=== PATIENT | female | born 1995 | race Hispanic/Latino ===

== ENCOUNTER 2017-10-07 18:42 | Emergency (ER) | payer MEDICAID ==
[2017-10-07 19:18] LABS: APPEARANCE,URINE Cloudy (CLEAR); BILIRUBIN,URINE Negative (NEGATIVE); COLOR,URINE Yellow (YELLOW); GLUCOSE, URINE (UA) Negative (NEGATIVE); KETONES,URINE Negative (NEGATIVE); LEUKOCYTE ESTERASE ,URINE Trace (NEGATIVE); NITRATE,URINE Negative (NEGATIVE); OCCULT BLOOD,URINE Negative (NEGATIVE); PH,URINE 7.5 (5.0-8.0); PROTEIN,URINE Negative (NEGATIVE); UROBILINOGEN,URINE 0.2 mg/dL (0.2-1.0)
[2017-10-07 19:20] LABS: HCG,QUAL RESULT NEGATIVE (NEGATIVE)
[2017-10-07 19:37] LABS: AMORPHOUS SEDIMENT,UR Many /LPF (None Seen); BACTERIA,URINE Few /HPF (None Seen); MUCUS,URINE Few LPF (None Seen); RBC,URINE 0-1 /HPF (0-1)
[2017-10-07] MEDS ORDERED: KETOROLAC TROMETHAMINE 30MG/ML ONE (20:36)
== END 2017-10-07 20:44 | disposition home or self-care (01) ==
LOC: EDH 18:42
DX: N83.291 Other ovarian cyst, right side (principal)
CPT/HCPCS: 76856; 81001; 81025; 96372; 99285; J1885

== ENCOUNTER 2019-02-23 01:38 | Observation (INO) | payer MEDICAID ==
[~2019-02-23] VITALS: Ht 152.4 cm; Wt 69.4 kg
[2019-02-23 02:18] LABS: BILIRUBIN,URINE Negative (NEGATIVE); COLOR,URINE Yellow (YELLOW); GLUCOSE, URINE (UA) Negative (NEGATIVE); KETONES,URINE Negative (NEGATIVE); LEUKOCYTE ESTERASE ,URINE Large (NEGATIVE); NITRATE,URINE Negative (NEGATIVE); OCCULT BLOOD,URINE Small (NEGATIVE); PROTEIN,URINE POS 2+ mg/dL (NEGATIVE)
[2019-02-23 02:21] LABS: APPEARANCE,URINE SLIGHTLY CLOUDY (CLEAR)
[2019-02-23 02:27] LABS: AMPHET/METH SCREEN,URINE NEGATIVE (NEGATIVE); BARBITURATE SCREEN, URINE NEGATIVE (NEGATIVE); BENZODIAZEPINES SCREEN,URINE NEGATIVE (NEGATIVE); CANNABINOID SCREEN,URINE NEGATIVE (NEGATIVE); COCAINE SCREEN,URINE NEGATIVE (NEGATIVE); OPIATE SCREEN,URINE NEGATIVE (NEGATIVE); PHENCYCLIDINE SCREEN,URINE NEGATIVE (NEGATIVE)
[2019-02-23 02:41] LABS: RBC,URINE 0-1 /HPF (0-1)
[2019-02-23 02:42] LABS: BACTERIA,URINE Few /HPF (None Seen); WBC,URINE 51-100 /HPF (0-1)
[2019-02-23] MEDS ORDERED: PREN-196 PO (02:43)
[2019-02-23] MEDS ORDERED: ACETAMINOPHEN EXTRA STRENGTH 500 MG TABLET PO ONE (03:15)
[2019-02-23] MEDS ORDERED: CEFTRIAXONE SODIUM 1 GM IM ONE (03:15)
[2019-02-23] MEDS ORDERED: CEFTRIAXONE SODIUM 1 GM ONE (03:20)
[2019-02-23] MEDS ORDERED: ACETAMINOPHEN EXTRA STRENGTH 500 MG TABLET ONE (03:21)
== END 2019-02-23 03:48 | disposition home or self-care (01) ==
LOC: EDH 01:38 → LDH 01:39
PROVIDERS: ADMIT Specialist; ATTEND Specialist
DX: O26.892 Other specified pregnancy related conditions, second trimester (principal); M54.9 Dorsalgia, unspecified; R10.30 Lower abdominal pain, unspecified; Z3A.26 26 weeks gestation of pregnancy; Z79.899 Other long term (current) drug therapy
CPT/HCPCS: 80305; 81001; 96372; 99284; G0378 ×2; J0696

== ENCOUNTER 2019-05-03 00:23 | Observation (INO) | payer OTHER, MEDICAID ==
[~2019-05-03] VITALS: Ht 160 cm; Wt 81.2 kg
[~2019-05-03 00:23] MED LIST: PREN-196 PO
[2019-05-03] MEDS ORDERED: PREN-196 PO (00:35)
[2019-05-03 00:54] LABS: APPEARANCE,URINE Clear (CLEAR); BILIRUBIN,URINE Negative (NEGATIVE); COLOR,URINE Yellow (YELLOW); GLUCOSE, URINE (UA) Negative (NEGATIVE); KETONES,URINE Negative (NEGATIVE); LEUKOCYTE ESTERASE ,URINE Trace (NEGATIVE); NITRATE,URINE Negative (NEGATIVE); OCCULT BLOOD,URINE Negative (NEGATIVE); PROTEIN,URINE Negative (NEGATIVE)
[2019-05-03 01:18] LABS: BACTERIA,URINE Rare /HPF (None Seen); RBC,URINE 0-1 /HPF (0-1); SQUAMOUS EPITHELIAL CELL,UR 0-2 /HPF (0-2)
[2019-05-03] MEDS: LACTATED RINGERS 1000ML 1,000 ML IV PRN ×2 (01:24→03:03)
[2019-05-03 01:50] LABS: AMPHET/METH SCREEN,URINE NEGATIVE (NEGATIVE); BARBITURATE SCREEN, URINE NEGATIVE (NEGATIVE); BENZODIAZEPINES SCREEN,URINE NEGATIVE (NEGATIVE); CANNABINOID SCREEN,URINE NEGATIVE (NEGATIVE); COCAINE SCREEN,URINE NEGATIVE (NEGATIVE); OPIATE SCREEN,URINE NEGATIVE (NEGATIVE); PHENCYCLIDINE SCREEN,URINE NEGATIVE (NEGATIVE)
[2019-05-03] MEDS ORDERED: TERBUTALINE SULFATE VIAL 1MG/ML SQ ONE (02:09)
[2019-05-03] MEDS ORDERED: TERBUTALINE SULFATE VIAL 1MG/ML SQ SCH (02:15)
[2019-05-03] MEDS ORDERED: LACTATED RINGERS 1000ML 1,000 ML IV SCH (02:15)
[2019-05-03] MEDS ORDERED: AMPICILLIN 2GM+NS 100ML 100 ML IV SCH (02:30)
[2019-05-03] MEDS ORDERED: AMPICILLIN 2GM+NS 100ML 100 ML IV ONE (02:57)
[2019-05-03 03:01] LABS: MEAN CORPUSCULAR HEMOGLOBIN 29.5 pg (27.0-33.0); MEAN CORPUSCULAR HGB CONC 33.2 g/dL (32.0-36.0); MEAN CORPUSCULAR VOLUME 88.6 fL (79-99); PLATELET COUNT (AUTO) 214 K/uL (130-400); RED BLOOD CELL COUNT(AUTO) 3.49 MIL/uL (4.00-5.50); RED CELL DISTRIBUTION WIDTH 13.5 % (11.0-15.5); WHITE BLOOD COUNT (AUTO) 10.3 K/uL (4.8-10.8)
[2019-05-03 03:53] VITALS: BP 97/54
[2019-05-03] MEDS ORDERED: AMPICILLIN 1GM+NS 50ML 50 ML IV SCH (06:30)
[2019-05-04 07:15] LABS: HEPATITIS Bs ANTIGEN SCREEN P Negative (Negative)
== END 2019-05-03 08:20 | disposition home or self-care (01) ==
LOC: EDH 00:23 → LDH 00:33
DX: O62.9 Abnormality of forces of labor, unspecified (principal); Z3A.35 35 weeks gestation of pregnancy
CPT/HCPCS: 36415; 76805; 80305; 81001; 85027; 86592; 86850; 86900; 86901; 87340; 96365; 96366; 99284; G0378 ×6; J0290 ×2; J7120 ×2; 96360; 96361; J3105

== ENCOUNTER 2019-05-19 17:43 | Observation (INO) | payer OTHER, MEDICAID | END 2019-05-19 18:37 | disposition home or self-care (01) | LOC: LDH 17:43 | DX: O42.90 Premature rupture of membranes, unspecified as to length of time between rupture and onset of labor, unspecified weeks of gestation (principal); Z3A.00 Weeks of gestation of pregnancy not specified | CPT/HCPCS: 82120; G0378 ==

== ENCOUNTER 2019-05-24 05:41 | Inpatient (IN) | payer OTHER, MEDICAID ==
[~2019-05-24] VITALS: Ht 160 cm; Wt 78.0 kg
[2019-05-24] MEDS ORDERED: LACTATED RINGERS 1000ML 1,000 ML IV PRN (05:43)
[2019-05-24] MEDS ORDERED: NALOXONE HCL 0.4 MG/1 ML ML IV PRN (05:45)
[2019-05-24] MEDS ORDERED: EPHEDRINE SULFATE 50 MG/ML AMPULE IVP PRN (05:45)
[2019-05-24] MEDS ORDERED: ROPIVACAINE 0.2% 100ML VIAL 100 ML EP SCH (05:45)
[2019-05-24] MEDS ORDERED: LACTATED RINGERS 500 ML 500 ML IV PRN (05:45)
[2019-05-24] MEDS ORDERED: PREN-196 PO (05:56)
[2019-05-24] MEDS ORDERED: OXYTOCIN 10 USP UNITS/ML 20 UNIT in LACTATED RINGERS 1000ML 1,000 ML IV SCH (06:00)
[2019-05-24 06:28] LABS: APPEARANCE,URINE Clear (CLEAR); BILIRUBIN,URINE Negative (NEGATIVE); COLOR,URINE Yellow (YELLOW); GLUCOSE, URINE (UA) Negative (NEGATIVE); KETONES,URINE Negative (NEGATIVE); LEUKOCYTE ESTERASE ,URINE Moderate (NEGATIVE); NITRATE,URINE Negative (NEGATIVE); OCCULT BLOOD,URINE Negative (NEGATIVE); PROTEIN,URINE Negative (NEGATIVE)
[2019-05-24 06:46] VITALS: BP 104/64
[2019-05-24 06:59] LABS: HEMATOCRIT 30.9 % (36-48); MEAN CORPUSCULAR HEMOGLOBIN 27.9 pg (27.0-33.0); MEAN CORPUSCULAR VOLUME 84.7 fL (79-99); PLATELET COUNT (AUTO) 229 K/uL (130-400); RED BLOOD CELL COUNT(AUTO) 3.65 MIL/uL (4.00-5.50); RED CELL DISTRIBUTION WIDTH 14.5 % (11.0-15.5); WHITE BLOOD COUNT (AUTO) 7.8 K/uL (4.8-10.8)
[2019-05-24 07:05] LABS: BACTERIA,URINE Rare /HPF (None Seen); MUCUS,URINE Rare LPF (None Seen); RBC,URINE 0-1 /HPF (0-1); SQUAMOUS EPITHELIAL CELL,UR Few /HPF (0-2)
[2019-05-24] MEDS ORDERED: OXYTOCIN-LR 20 UNITS/1000 ML 1,000 ML IV ONE ×2 (07:18→13:40)
[2019-05-24] MEDS ORDERED: FENTANYL CITRATE PF 50 MCG/1 ML 2ML VIAL ONE (12:37)
[2019-05-24] MEDS ORDERED: OXYTOCIN-LR 20 UNITS/1000 ML 1,000 ML IV SCH (17:30)
[2019-05-24] MEDS ORDERED: ACETAMINOPHEN-CODEINE 300/30MG TAB PO PRN (17:30)
[2019-05-24] MEDS ORDERED: DIPH,PERTUSS(ACELL),TET VAC/PF 0.5 ML VIAL IM PRN (17:30)
[2019-05-24] MEDS ORDERED: WITCH HAZEL 1 PAD TP PRN (17:30)
[2019-05-24] MEDS ORDERED: LANOLIN 30GM OINTMENT TP PRN (17:30)
[2019-05-24] MEDS ORDERED: ACETAMINOPHEN 325 MG TAB PO PRN (17:30)
[2019-05-24] MEDS ORDERED: BENZOCAINE/LANOLIN/ALOE VERA 60 ML AEROSOL TP PRN (17:30)
[2019-05-24] MEDS: IBUPROFEN 600 MG TABLET PO PRN (19:21)
[2019-05-24 21:00] VITALS: BP 113/74
[2019-05-24] MEDS ORDERED: DOCUSATE SODIUM 100 MG CAP PO SCH (21:00)
--- NOTE | 2019-05-24 21:00 | NUR ---
Patient received from L &D: Patient received from L & D via wheelchair accompanied by and Orlin Barlow RN. She has IV of LR with 20 units Pitocin infusing well regulated at 125 ml/hr. she and oriented to the room, call light given, Plan of care discussed with patient, verbalizes understanding.
--- NOTE | 2019-05-24 22:40 | NUR ---
Activity; Patient assisted to the bathroom voided 400 ml of urine clear yellow with red tinged. Patricia care and Patricia pad changed assisted. Dermoplast spray given with instruction.
[2019-05-24 23:45] VITALS: BP 100/58
[2019-05-25 01:39] VITALS: BP 113/74
[2019-05-25 03:37] VITALS: BP 106/63
[2019-05-25] MEDS: IBUPROFEN 600 MG TABLET PO PRN ×2 (05:40→14:21)
[2019-05-25 07:30] VITALS: BP 112/59
[2019-05-25 08:12] LABS: HEPATITIS Bs ANTIGEN SCREEN P Negative (Negative)
[2019-05-25 11:32] VITALS: BP 100/53
[2019-05-25 16:09] VITALS: BP 102/58
== END 2019-05-25 18:10 | disposition home or self-care (01) | DRG 807 ==
LOC: WSH 05:41 → LDH 05:42 → WSH 05:43 → LDH 09:45 → WSH 21:06
PROC: 3E0234Z Introduction of Serum, Toxoid and Vaccine into Muscle, Percutaneous Approach (ICD-10-PCS; 2019-05-24)
PROC: 10D07Z6 Extraction of Products of Conception, Vacuum, Via Natural or Artificial Opening (ICD-10-PCS; principal; 2019-05-25)
PROC: 3E0R3BZ Introduction of Anesthetic Agent into Spinal Canal, Percutaneous Approach (ICD-10-PCS; 2019-05-25)
PROC: 00HU33Z Insertion of Infusion Device into Spinal Canal, Percutaneous Approach (ICD-10-PCS; 2019-05-25)
PROC: 10907ZC Drainage of Amniotic Fluid, Therapeutic from Products of Conception, Via Natural or Artificial Opening (ICD-10-PCS; 2019-05-25)
PROC: 3E033VJ Introduction of Other Hormone into Peripheral Vein, Percutaneous Approach (ICD-10-PCS; 2019-05-25)
DX: O69.1XX0 Labor and delivery complicated by cord around neck, with compression, not applicable or unspecified (principal); Z37.0 Single live birth; O76 Abnormality in fetal heart rate and rhythm complicating labor and delivery; O99.02 Anemia complicating childbirth; D64.9 Anemia, unspecified; Z3A.39 39 weeks gestation of pregnancy; Z23 Encounter for immunization
CPT/HCPCS: 36415; 81001; 85027; 86592; 86850; 86900; 86901; 87340; A4314; G0378; J2590; J2795; J3010

== ENCOUNTER 2019-09-10 22:04 | Emergency (ER) | payer MEDICAID, OTHER ==
[2019-09-10] MEDS ORDERED: HYDROCODONE/ACETAMINOPHEN 5/325 MG TAB ONE (23:16)
== END 2019-09-11 00:29 | disposition home or self-care (01) ==
LOC: EDH 22:04
DX: S62.306A Unspecified fracture of fifth metacarpal bone, right hand, initial encounter for closed fracture (principal); X58.XXXA Exposure to other specified factors, initial encounter; Y93.89 Activity, other specified; Y92.89 Other specified places as the place of occurrence of the external cause; Y99.8 Other external cause status
CPT/HCPCS: 29125; 73130; 81025

== ENCOUNTER 2022-01-24 20:46 | Emergency (ER) | payer MEDICAID, OTHER ==
[~2022-01-24] VITALS: Ht 160 cm; Wt 79.4 kg
[2022-01-24 20:47] VITALS: BP 112/70
[2022-01-24] MEDS ORDERED: L.E.T. GEL 3ML SYG TP ONE (21:00)
[2022-01-24] MEDS ORDERED: ACETAMINOPHEN 500 MG TABLET PO ONE (21:00)
== END 2022-01-24 21:46 | disposition home or self-care (01) ==
LOC: EDH 20:46
DX: S01.01XA Laceration without foreign body of scalp, initial encounter (principal); X58.XXXA Exposure to other specified factors, initial encounter; Y93.89 Activity, other specified; Y92.89 Other specified places as the place of occurrence of the external cause; Y99.8 Other external cause status

== ENCOUNTER 2023-06-15 18:11 | Observation (INO) | payer MEDICAID ==
[~2023-06-15] VITALS: Ht 160 cm; Wt 81.6 kg
[2023-06-15 18:19] VITALS: BP 121/57; PULSE 93; RESP 16; O2SAT 96
[2023-06-15 19:33] LABS: ADD UA MICROSCOPIC NO; APPEARANCE,URINE CLEAR (CLEAR); BILIRUBIN,URINE NEGATIVE (NEGATIVE); COLOR,URINE LIGHT-YELLOW (YELLOW); GLUCOSE, URINE (UA) NEGATIVE (NEGATIVE); KETONES,URINE NEGATIVE (NEGATIVE); LEUKOCYTE ESTERASE ,URINE NEGATIVE Leu/uL (NEGATIVE); NITRATE,URINE NEGATIVE (NEGATIVE); OCCULT BLOOD,URINE NEGATIVE (NEGATIVE); PROTEIN,URINE NEGATIVE (NEGATIVE); UROBILINOGEN,URINE 0.2 mg/dL (0.2-1.0)
[2023-06-15] MEDS ORDERED: LACTATED RINGERS 1000ML 1,000 ML IV PRN (20:00)
== END 2023-06-15 20:40 | disposition home or self-care (01) ==
LOC: EDH 18:11 → LDH 18:12
PROVIDERS: ADMIT Obstetrics & Gynecology; ATTEND Obstetrics & Gynecology
DX: O26.893 Other specified pregnancy related conditions, third trimester (principal); R10.9 Unspecified abdominal pain; O99.891 Other specified diseases and conditions complicating pregnancy; M79.661 Pain in right lower leg; Z3A.38 38 weeks gestation of pregnancy
CPT/HCPCS: 81003; 93971; G0378 ×2; G0379